=== PATIENT | female | born 1985 | race Caucasian/White ===

== ENCOUNTER 2022-02-24 18:58 | Emergency (ER) | payer MEDICAID, OTHER, SELFPAY ==
[2022-02-24 21:42] VITALS: BP 147/94; PULSE 66; RESP 18; TEMP 36.9; O2SAT 100; BMI 26.6
[2022-02-24 22:35] LABS: MANUAL DIFF FLAG NO
[2022-02-24 22:36] LABS: Basophils Absolute Auto 0.1 X10*3/uL (0.0-0.2); Eosinophils Absolute Auto 0.5 X10*3/uL (0.0-0.4); Eosinophils Percent Auto 8.3 % (0-4); Hematocrit 37.8 % (37.0-47.0); Hemoglobin 12.4 g/dl (12.0-16.0); Imm Gran Abs Auto 0.01 X10*3/uL (0.00-0.03); Imm Gran Pct Auto 0.2 % (0.0-0.4); Lymphocytes Absolute Auto 3.1 X10*3/uL (1.2-4.9); Lymphocytes Percent Auto 47.8 % (20-40); Mean Corpuscular HGB Conc 32.8 g/dl (31.0-35.0); Mean Corpuscular Hemoglobin 27.7 pg (27.0-33.0); Mean Corpuscular Volume 84.4 fL (80.0-98.0); Monocytes Absolute Auto 0.5 X10*3/uL (0.1-1.2); Neutrophils Absolute Auto 2.2 x10*3/uL (2.0-8.3); Neutrophils Percent Auto 33.7 % (45-73); Platelet Count 277 X10*3/uL (160-400); Red Blood Count 4.48 X10*6/uL (4.20-5.50); Red Cell Distribution Width 15.6 % (11.0-16.0); White Blood Count 6.5 X10*3/uL (4.8-10.8)
[2022-02-24 22:52] LABS: Alanine Aminotransferase 33 U/L (0-31); Alkaline Phosphatase 60 U/L (39-117); Anion Gap 13 (12-20); Aspartate Amino Transferase 29 U/L (5-31); Bilirubin Direct 0.2 mg/dL (0.0-0.5); Bilirubin Total 0.4 mg/dL (0.0-1.0); Blood Urea Nitrogen 10 mg/dL (9-16); Calcium 8.9 mg/dL (8.4-10.2); Carbon Dioxide 23 mmol/L (22-29); Chloride 108 mmol/L (96-108); Creatinine Clr Calc Pharmacy 103.1; Estimated Glomerular Filt Rate > 60; Glucose Random 69 mg/dL (60-115); Potassium 3.5 mmol/L (3.3-5.1); Sodium 140 mmol/L (135-145); Total Protein 6.9 g/dL (6.5-8.0)
[2022-02-24 23:12] LABS: TSH reflex Free T4 11.53 uIU/mL (0.32-4.0)
--- NOTE | 2022-02-24 23:22 | ED_ITS ---
HPI - Weakness General Chief complaint: Weakness Stated complaint: thyroid, no meds Time Seen by Provider: 02/24/22 19:04 Source: patient and radiographer Mode of arrival: ambulatory History of Present Illness HPI Narrative: 36F hx of thyroidectomy and on levothyroxine who has recently moved to the [facility] from [place] and ran out of her levothyroxine approximately 2 weeks ago, she has an appointment with the [facility] in [facility] but her appointment is not until 06/04/2022. Patient states that she is experiencing weakness, fatigue, ?fogginess? and feels that her speech is slow. Otherwise, she denies any headache, dizziness, palpitations, difficulty breathing, lower extremity swelling, cold intolerance or constipation. She states she is on 125 mcg. Related Data Previous Rx's Medication Instructions Recorded levothyroxine 125 mcg capsule 125 mcg PO DAILY #30 cap 02/24/22 Allergies Allergy/AdvReac Type Severity Reaction Status Date / Time Unable to Assess Allergy Unverified 02/24/22 19:05 Review of Systems Review of Systems: Pertinent positives and negatives as stated in HPI 10 point review of systems is otherwise negative. PMFSH Past Medical History Source: nursing notes reviewed Social History Social History Advance Directives: No Advance Directives Information Provided: Yes Patient : No Physical Exam Vital Signs: Vital Signs: Last Vital Signs Temp 98.5 F 02/24/22 21:42 Pulse 66 02/24/22 21:42 Resp 18 02/24/22 21:42 BP 147/94 H 02/24/22 21:42 Pulse Ox 100 02/24/22 21:42 BMI result Body Mass Index 26.6 VITAL SIGNS: Reviewed. GENERAL: Well developed, well nourished, in no acute distress. HEAD: Normocephalic/atraumatic EYES: PERRLA, EOMI, no lid lag noted EARS: Ext canals without abnormality, TMs non-bulging and non-erythematous NOSE: Nares patent bilateral OROPHARYNX: no oral lesions noted, posterior pharynx clear and non-erythematous without noted tonsillar enlargement/erythema/exudates NECK: Supple, no adenopathy LUNGS: Normal breath sounds. No adventitious sounds or accessory muscle use. SpO2<100> CARDIOVASCULAR: Regular rate and rhythm without noted murmurs, no JVD or lower extremity edema. ABDOMEN: Soft, non-tender, non-distended with bowel sounds. MUSCULOSKELETAL: No tenderness, deformities, or effusions noted on gross inspection. EXTREMITIES: No cyanosis, clubbing or edema. SKIN: Inspection of the skin reveals no rashes NEUROLOGIC: Alert and oriented x 4. Strength and sensation to light touch were grossly intact x 4. Course Course Course Narrative: 36-year-old female with history and clinical presentation consistent with hypothyroid secondary to thyroidectomy and currently out of medication with mild symptoms. No evidence to suggest myxedema or underlying cardiac complications. Explained to patient that we would give 30 days levothyroxine seen and that she would need to call the office tomorrow morning to see if she can arrange for an appointment sooner than May for repeat lab work. Otherwise, I attempted to call the [facility] in [facility] but was unable to speak with the provider as the on-call physician will only discuss current patient's. Patient is otherwise hemodynamically stable and will be discharged with a 30 day prescription. MDM - Weakness Lab Data Result diagrams: 02/24/22 22:28 02/24/22 22:28 Labs: Lab Results 02/24/22 02/24/22 Range/Units 22:28 22:28 WBC 6.5 (4.8-10.8) X10*3/uL RBC 4.48 (4.20-5.50) X10*6/uL Hgb 12.4 (12.0-16.0) g/dl Hct 37.8 (37.0-47.0) % MCV 84.4 (80.0-98.0) fL MCH 27.7 (27.0-33.0) pg MCHC 32.8 (31.0-35.0) g/dl RDW 15.6 (11.0-16.0) % Plt Count 277 (160-400) X10*3/uL MPV 11.0 (9.4-12.3) fL Immature Gran % (Auto) 0.2 (0.0-0.4) % Neut % (Auto) 33.7 L (45-73) % Lymph % (Auto) 47.8 H (20-40) % Wythe % (Auto) 8.0 (2-11) % Eos % (Auto) 8.3 H (0-4) % Baso % (Auto) 2.0 (0-2) % Lymph # (Auto) 3.1 (1.2-4.9) X10*3/uL Wythe # (Auto) 0.5 (0.1-1.2) X10*3/uL Eos # (Auto) 0.5 H (0.0-0.4) X10*3/uL Baso # (Auto) 0.1 (0.0-0.2) X10*3/uL Abs Immat Gran (auto) 0.01 (0.00-0.03) X10*3/uL Absolute Neuts (auto) 2.2 (2.0-8.3) x10*3/uL Absolute Nucleated RBC 0.000 (0.0-0.012) X10*3/uL Nucleated RBC % (auto) 0.0 (0.0-0.2) /100WBC Sodium 140 (135-145) mmol/L Potassium 3.5 (3.3-5.1) mmol/L Chloride 108 (96-108) mmol/L Carbon Dioxide 23 (22-29) mmol/L Anion Gap 13 (12-20) BUN 10 (9-16) mg/dL Creatinine 0.77 (0.5-1.4) mg/dL Estim Creat Clear Calc 103.1 Estimated GFR > 60 Random Glucose 69 (60-115) mg/dL Calcium 8.9 (8.4-10.2) mg/dL Total Bilirubin 0.4 (0.0-1.0) mg/dL Direct Bilirubin 0.2 (0.0-0.5) mg/dL AST 29 (5-31) U/L ALT 33 H (0-31) U/L Alkaline Phosphatase 60 (39-117) U/L Total Protein 6.9 (6.5-8.0) g/dL Albumin 4.0 (3.5-5.0) g/dL TSH 11.53 H (0.32-4.0) uIU/mL Discharge Plan Discharge Clinical Impression: Hypothyroidism Patient Disposition: Home, Self-Care Instructions: Hypothyroidism (ED) Additional Instructions: 1. Voc? recebeu 30 parker de levotiroxina. Por favor, tome o medicamento conforme prescrito. 2. Ligue para a cl?mago amanh? de orestes? e pergunte se pode marcar ignacio consulta antes de . Voc? pode solicitar que seja colocado na lista de espera skyler outro paciente cancele ignacio consulta. Retorne ao pronto-shirley se os sintomas piorarem ou se voc? n?o conseguir fazer o teste da tire?axel dentro de 30 parker. Prescriptions: New levothyroxine 125 mcg capsule 125 mcg PO DAILY Qty: 30 0RF
[2022-02-25 01:05] LABS: Free T4 (Free Thyroxine) 0.53 ng/dL (0.71-1.85)
== END 2022-02-25 00:45 | disposition home or self-care (01) ==
PROVIDERS: Emergency Medicine; Emergency Provider Student in an Organized Health Care Education/Training Program
DX: R53.1 Weakness (principal); E03.9 Hypothyroidism, unspecified
CPT/HCPCS: 36415; 80048; 80076; 84439; 84443; 85025; 99283